=== PATIENT | female | born 1955 | race Two or more races ===

== ENCOUNTER 2019-10-27 05:04 | Day surgery (SDC) | payer OTHER ==
[~2019-10-27] VITALS: Ht 165.1 cm; Wt 60.9 kg
[~2019-10-27 05:04] MED LIST: CYCLOPENTOLATE HCL 1% 2 ML OPHTHALMIC SOLUTION ONE; KETOROLAC TROMETHAMINE 0.5% 5 ML OPHTHALMIC SOLUTION ONE; MOXIFLOXACIN HCL 0.5% 3 ML OPHTHALMIC SOLUTION ONE; PHENYLEPHRINE HCL 2.5% 2 ML OPHTHALMIC SOLUTION ONE; RINGERS SOLUTION,LACTATED 500 ML IV ONE; TETRACAINE HCL/PF 0.5% 4 ML OPHTHALMIC SOLUTION ONE; TROPICAMIDE 1% 2 ML OPHTHALMIC SOLUTION ONE
[2019-10-27] MEDS ORDERED: EPINEPHrine 1:1,000 [1 MG/ML] AMP IM ONE (05:05)
[2019-10-27] MEDS ORDERED: POVIDONE-IODINE 10% 15 ML SOLUTION UD TP ONE (05:05)
[2019-10-27] MEDS ORDERED: NEOMYCIN/POLYMYXIN B/DEXAMETH 3.5 GM OPHTHALMIC OINTMENT OS ONE (05:05)
[2019-10-27] MEDS ORDERED: LIDOCAINE/PF 1% 2 ML VIAL IM ONE (05:05)
[2019-10-27] MEDS ORDERED: PrednisoLONE ACETATE 1% 5 ML OPHTHALMIC SUSPENSION OS ONE (05:05)
[2019-10-27] MEDS ORDERED: HYALURONATE SODIUM 12 MG/ML 0.8 ML SYRINGE IO ONE (05:05)
[2019-10-27] MEDS: MOXIFLOXACIN HCL 0.5% 3 ML OPHTHALMIC SOLUTION OS SCH ×3 (05:45→05:56)
[2019-10-27] MEDS: KETOROLAC TROMETHAMINE 0.5% 5 ML OPHTHALMIC SOLUTION OS SCH ×3 (05:46→05:56)
[2019-10-27] MEDS: PHENYLEPHRINE HCL 2.5% 2 ML OPHTHALMIC SOLUTION OS SCH ×3 (05:46→05:56)
[2019-10-27] MEDS: CYCLOPENTOLATE HCL 1% 2 ML OPHTHALMIC SOLUTION OS SCH ×3 (05:46→05:56)
[2019-10-27] MEDS: TROPICAMIDE 1% 2 ML OPHTHALMIC SOLUTION OS SCH ×3 (05:46→05:56)
[2019-10-27] MEDS ORDERED: TETRACAINE HCL/PF 0.5% 4 ML OPHTHALMIC SOLUTION OS ONE (06:00)
[2019-10-27] MEDS ORDERED: TRAZ-252 PO (08:33)
[2019-10-27] MEDS ORDERED: MIDAZOLAM HCL 2 MG/2 ML VIAL IVP ONE (12:00)
[2019-10-27] MEDS ORDERED: FentaNYL CITRATE-PF 100 MCG/2 ML VIAL IVP ONE (12:00)
== END 2019-10-27 09:00 | disposition home or self-care (01) ==
LOC: SURGERY 05:04
PROVIDERS: ATTEND Ophthalmology
DX: H25.12 Age-related nuclear cataract, left eye (principal); I10 Essential (primary) hypertension; Z11.59 Encounter for screening for other viral diseases
CPT/HCPCS: 66984; 93005; J0171; J2250; J3010; J3490 ×2; J7120; V2632

== ENCOUNTER 2019-11-19 05:39 | Day surgery (SDC) | payer OTHER ==
[~2019-11-19] VITALS: Ht 154.9 cm; Wt 60.5 kg
[~2019-11-19 05:39] MED LIST changes: +TRAZ-252 PO
[2019-11-19] MEDS ORDERED: EPINEPHrine 1:1,000 [1 MG/ML] AMP ONE (05:41)
[2019-11-19] MEDS ORDERED: LIDOCAINE/PF 1% 2 ML VIAL ONE (05:41)
[2019-11-19] MEDS ORDERED: BALANCED SALT 15 ML OPHTHALMIC IRRIG.SOLN ONE (05:41)
[2019-11-19] MEDS ORDERED: NEOMYCIN/POLYMYXIN B/DEXAMETH 3.5 GM OPHTHALMIC OINTMENT ONE (05:41)
[2019-11-19] MEDS ORDERED: POVIDONE-IODINE 10% 15 ML SOLUTION UD ONE (05:42)
[2019-11-19] MEDS: CYCLOPENTOLATE HCL 1% 2 ML OPHTHALMIC SOLUTION OD SCH ×3 (05:58→06:10)
[2019-11-19] MEDS: PHENYLEPHRINE HCL 2.5% 2 ML OPHTHALMIC SOLUTION OD SCH ×3 (05:58→06:11)
[2019-11-19] MEDS: KETOROLAC TROMETHAMINE 0.5% 5 ML OPHTHALMIC SOLUTION OD SCH ×3 (05:58→06:10)
[2019-11-19] MEDS: MOXIFLOXACIN HCL 0.5% 3 ML OPHTHALMIC SOLUTION OD SCH ×3 (05:58→06:11)
[2019-11-19] MEDS: TROPICAMIDE 1% 2 ML OPHTHALMIC SOLUTION OD SCH ×3 (05:58→06:11)
[2019-11-19] MEDS ORDERED: TETRACAINE HCL/PF 0.5% 4 ML OPHTHALMIC SOLUTION OD ONE (06:00)
[2019-11-19] MEDS ORDERED: ALPRAZolam 0.5 MG TABLET PO ONE (06:00)
[2019-11-19] MEDS ORDERED: PrednisoLONE ACETATE 1% 5 ML OPHTHALMIC SUSPENSION ONE (06:21)
[2019-11-19] MEDS ORDERED: MIDAZOLAM HCL 2 MG/2 ML VIAL IVP ONE (12:00)
[2019-11-19] MEDS ORDERED: FentaNYL CITRATE-PF 100 MCG/2 ML VIAL IVP ONE (12:00)
[2019-11-19] MEDS ORDERED: HYALURONATE SODIUM 12 MG/ML 0.8 ML SYRINGE IO ONE (17:17)
== END 2019-11-19 09:00 | disposition home or self-care (01) ==
LOC: SURGERY 05:39
PROVIDERS: ATTEND Ophthalmology
DX: H25.11 Age-related nuclear cataract, right eye (principal); Z11.59 Encounter for screening for other viral diseases; F41.9 Anxiety disorder, unspecified
CPT/HCPCS: 66984; 87635; J0171; J2250; J3010; J3490 ×2; J7120; V2632